=== PATIENT | female | born 1975 | race Hispanic/Latino ===

== ENCOUNTER → 2023-10-17 | Emergency (ER) | payer SELFPAY ==
[~2023-10-17] VITALS: Ht 165.1 cm; Wt 72.6 kg
[~2023-10-17] MED LIST: DIPH50 PO
[2023-10-17] MEDS: FAMOTIDINE 20MG VIAL IV ONE (12:46)
[2023-10-17] MEDS: ONDANSETRON 4MG INJ IVP ONE (12:46)
[2023-10-17] MEDS: DiphenhydrAMINE HCL 50 MG/ML VIAL IV ONE (12:46)
[2023-10-17] MEDS: Solu-medROL 125MG VIAL IVP ONE (12:46)
[2023-10-17 13:30] VITALS: BP 131/88; PULSE 96; RESP 18; O2SAT 98
== END ==
LOC: EDH 12:05
DX: T63.441A Toxic effect of venom of bees, accidental (unintentional), initial encounter (principal); T78.2XXA Anaphylactic shock, unspecified, initial encounter; R11.2 Nausea with vomiting, unspecified; I10 Essential (primary) hypertension; F41.9 Anxiety disorder, unspecified; Z98.890 Other specified postprocedural states; X58.XXXA Exposure to other specified factors, initial encounter; Y92.89 Other specified places as the place of occurrence of the external cause
CPT/HCPCS: 99284; 96374; 96375; J1200; J3490; J2919; J2405